=== PATIENT | male | born 1990 | race American Indian/Alaskan Native ===

== ENCOUNTER 2020-09-02 01:28 | Emergency (ER) | payer OTHER, SELFPAY ==
[2020-09-02 02:18] LABS: Bilirubin,Urine NEG (Negative); Blood,Urine NEG (Negative); Color,Urine Colorless (Yellow); Protein,Urine <15 mg/dL mg/dL (Negative); RBC,Urine < 1.0 /HPF (0.0-6.0); Urobilinogen,Urine < 2.0 mg/dL (<2.0)
[2020-09-02 02:19] LABS: Basophils % (Auto) 0.4 % (0.0-1.8); Eosinophils # (Auto) 0.5 K/mm3 (0.0-0.4); Eosinophils % (Auto) 7.6 % (0.0-4.3); Hematocrit 51.9 % (35.5-45.6); Hemoglobin 17.9 gm/dl (11.8-15.2); Lymphocytes # (Auto) 2.6 K/mm3 (1.2-5.4); Lymphocytes % (Auto) 40.4 % (13.4-35.0); Mean Corpuscular HGB Conc 35 % (32-34); Mean Corpuscular Volume 99 fl (84-94); Monocytes # (Auto) 0.3 K/mm3 (0.0-0.8); Monocytes % (Auto) 4.8 % (0.0-7.3); Platelet Count 228 K/mm3 (140-440); Red Blood Count 5.27 M/mm3 (3.65-5.03); Red Cell Distribution Width 14.8 % (13.2-15.2)
[2020-09-02 02:26] LABS: Amphetamine Screen,Urine PRESUMPTIVE NEGATIVE; Benzodiazepines Screen,Urine PRESUMPTIVE NEGATIVE; Cannabinoid Screen,Urine PRESUMPTIVE NEGATIVE; Cocaine Screen,Urine PRESUMPTIVE NEGATIVE; Methadone Screen,Urine PRESUMPTIVE NEGATIVE; Opiate Screen,Urine PRESUMPTIVE NEGATIVE
[2020-09-02 02:36] LABS: BUN/Creatinine Ratio 7; Blood Urea Nitrogen 7 mg/dL (9-20); Calcium 9.6 mg/dL (8.4-10.2); Hemolysis Index 17
--- NOTE | 2020-09-02 02:36 | Emergency Department Report ---
ED Psych HPI - General Stated Complaint: Time Seen by Provider: 09/02/20 01:46 - History of Present Illness Initial Comments: 30-year-old male, history of depression, presents to ED for mental health evaluation. Patient posted something on Facebook alluding to suicidal thoughts, stating that he does not want to be on this earth anymore. Someone saw his post and called authorities to come and evaluate the patient. Patient was brought to our ED by police. Patient does admit to suicidal thoughts. He denies a plan. He denies any alcohol or drug use. He denies any HI or hallucinations. MD Complaint: suicidal ideation -: unknown Associated Psychiatric Symptoms: depression Improves With: none Worsens With: none Context: significant life stressor Associated Symptoms: denies other symptoms Treatments Prior to Arrival: none If Self Harm: admits thoughts of - Related Data Previous Rx's Medication Instructions Recorded Last Taken Type Sertraline [Zoloft] 25 mg PO QDAY #30 tab 09/03/20 Unknown Rx traZODone [Desyrel] 50 mg PO QHS #30 tab 09/03/20 Unknown Rx Allergies Allergy/AdvReac Type Severity Reaction Status Date / Time No Known Allergies Allergy Verified 09/03/20 08:07 ED Review of Systems ROS: Stated complaint: Other details as noted in HPI Comment: All other systems reviewed and negative Psychiatric: suicidal thoughts. denies: auditory hallucinations, visual hallucinations, homicidal thoughts ED Past Medical Hx - Past Medical History Hx Psychiatric Treatment: No Additional medical history: speech impairment but understandable - Social History Smoking Status: Never Smoker Substance Use Type: None - Medications Home Medications: Home Medications Medication Instructions Recorded Confirmed Last Taken Type Sertraline [Zoloft] 25 mg PO QDAY #30 tab 09/03/20 Unknown Rx traZODone [Desyrel] 50 mg PO QHS #30 tab 09/03/20 Unknown Rx ED Physical Exam - General General appearance: alert, in no apparent distress - Head Head exam: Present: atraumatic, normocephalic - Eye Eye exam: Present: normal appearance, EOMI - ENT ENT exam: Present: mucous membranes moist - Neck Neck exam: Present: normal inspection - Respiratory Respiratory exam: Present: normal lung sounds bilaterally. Absent: respiratory distress - Cardiovascular Cardiovascular Exam: Present: regular rate, normal rhythm - GI/Abdominal GI/Abdominal exam: Absent: distended - Extremities Exam Extremities exam: Present: normal inspection - Neurological Exam Neurological exam: Present: alert, oriented X3, other (Speech impediment present) - Psychiatric Psychiatric exam: Present: suicidal ideation. Absent: homicidal ideation - Skin Skin exam: Present: warm, dry, intact, normal color ED Course Vital Signs 09/02/20 09/02/20 09/02/20 02:00 02:39 08:56 Temperature 97.6 F Pulse Rate 87 Respiratory 18 18 18 Rate Blood Pressure 100/60 [Left] O2 Sat by Pulse 97 Oximetry 09/02/20 09/03/20 09/03/20 20:56 08:06 08:10 Temperature 97.5 F L 98 F Pulse Rate 67 79 Respiratory 18 20 Rate Blood Pressure 115/68 110/60 [Left] O2 Sat by Pulse 98 98 100 Oximetry ED Medical Decision Making - Lab Data Result diagrams: 09/02/20 23:40 09/02/20 01:46 - Medical Decision Making Patient is medically clear for mental health evaluation. 1013 placed on chart. Will dispo per psych. - Differential Diagnosis Alcohol abuse, depression Critical care attestation.: If time is entered above; I have spent that time in minutes in the direct care of this critically ill patient, excluding procedure time. ED Disposition Clinical Impression: Suicidal ideation, Alcohol intoxication Disposition: DC-01 TO HOME OR SELFCARE Is pt being admited?: No Condition: Stable Additional Instructions: Per mental health provider Per psych provider, Sneha Lozada, pt has been cleared by psych. Outpatient resources provided to include psychiatric providers and therapy. Safety plan completed with pt and resources discussed. Pt denies SI, HI, and no reports of A VH. Pts thoughts are lucid and within reality. Denies having access to firearms or weapons. Professional and Agency Contacts To help [facility](19/10) [place] Crisis Line: Suicide Prevention Line: Crisis Text Line: Text START to 766810 Emergency: 911 Outpatient COMMUNITY Behavioral Health Resources: DEGERALDLB: [facility] [address] [place], [place] [address] [facility] [address] [place] [address] JUANA: [facility] - [address] [place] [address] Wednesday thru Wednesday - 8am - 5pm SHANEZuri: [facility] Address: [address], [place] [address] DEMETRIUS: [facility] Address: [address], [place] [address] Wednesday thru Wednesday- 7am-2pm [facility] Address: [address], [place] [address] Wednesday thru Wednesday: 8:30AM-5PM OUTPATIENT MENTAL HEALTH RESOURCES [facility], [address] [place] [address] [facility] Nivia Henson MD: [address] [facility] [address] [place], [place] [id number] [facility]: [address] [place], [place] [id number] [employer] [place], [place] [id number] [phone] [facility]: [address] [facility] [address] [place], [place] [id number] [facility]: [address] [facility] [address] [facility] [id number] [facility]: [address] [place] [address] Don Carballo MD: [address] [facility] [id number] [facility]: [address] [facility] [facility] [place], [place] [id number] [phone] [place] CRISIS AND ACCESS LINE: * Prescriptions: traZODone [Desyrel] 50 mg PO QHS #30 tab Sertraline [Zoloft] 25 mg PO QDAY #30 tab Referrals: PRIMARY CARE, [Primary Care Provider] - 3-5 Days Forms: Work/School Release Form(ED)
--- NOTE | 2020-09-02 12:27 | Consultation ---
History of Present Illness - Reason for Consult Consult date: 09/02/20 Reason for consult: SI - History of Present Psychiatric Illness Per ED Note: 30-year-old male, history of depression, presents to ED for mental health evaluation. Patient posted something on Facebook alluding to suicidal thoughts, stating that he does not want to be on this earth anymore. Someone saw his post and called authorities to come and evaluate the patient. Patient was brought to our ED by police. Patient does admit to suicidal thoughts. He denies a plan. He denies any alcohol or drug use. He denies any HI or hallucinations. During my evaluation of 30y/o Neil Yeager, he is lying down. He is a/ ox 3. He has a slight speech impairment. He says he put something on Facebook about not wanting to live and someone called the police. The patient says, "I don't know w hy I did that. He says somebody made me upset." He is telling me that he has to go to work and [employer] and is asking for a doctors note. He denies feeling suicidal right now. Not clear if the patient is being forthcoming about how he feels, because he verbalized to the nurse that he was having suicidal thoughts. The patient denies hallucinations of any kind. PAST PSYCHIATRIC HISTORY Diagnoses: Denies Suicide attempts or Self-harm behavior: Denies Prior psychiatric hospitalizations: Denies Substance Abuse history: Denies Previous psychiatric medications tried: "when I was younger" Outpatient treatment: Denies PAST MEDICAL HISTORY: None reported Family Psychiatric History: None reported or documented SOCIAL HISTORY Marital Status: Single Living Arrangements: with grandparents Employment Status: Employed Access to guns/weapons: None reported Education: History of Abuse: None reported Legal History: Yes REVIEW OF SYSTEMS Constitutional: Negative for weight loss ENT: Negative for stridor Respiratory: Negative for cough or hemoptysis All other systems reviewed and are negative MENTAL STATUS EXAMINATION General Appearance and Behavior: Age appropriate, good hygiene, wearing appropriate clothes, good eye contact Cooperation: Participating/engaged, but Guarded Psychomotor Behavior: Psychomotor normal Mood: "okay" Affect and affective range: Congruent with stated mood Thought Process: goal directed Thought Content: None Speech: slurred Suicidal Ideation: Denies Homicidal Ideation: Denies HI Hallucinations: Denies Delusions: None elicited Impulse Control: Impaired Insight and Judgment: Limited insight and judgment Memory: Limited Attention: Normal Orientation: Alert, oriented Assessment and Plan (1) MDD (major depressive disorder) Current Visit: Yes Status: Acute Treatment Plan Zoloft 25mg po daily Trazodone 50mg po qhs Sitter: Defer to primary Medical: Per primary Disposition: Recommend acute psychiatric inpatient Will follow. Thank you for this consult Case staffed with Dr. Ponce Medications and Allergies Allergies Allergy/AdvReac Type Severity Reaction Status Date / Time No Known Allergies Allergy Verified 09/05/14 00:20 Home Medications Medication Instructions Recorded Confirmed Last Taken Type No Known Home Medications [No 09/05/14 09/05/14 Unknown History Reported Home Medications] Mental Status Exam - Vital signs Last Vital Signs Temp 97.6 F 09/02/20 02:00 Pulse 87 09/02/20 02:00 Resp 18 09/02/20 08:56 BP 100/60 09/02/20 02:00 Pulse Ox 97 09/02/20 02:00 Results Result Diagrams: 09/02/20 01:46 09/02/20 01:46 Abnormal lab results 09/02/20 09/02/20 09/02/20 Range/Units 01:46 01:46 01:46 RBC (3.65-5.03) M/mm3 Hgb (11.8-15.2) gm/dl Hct (35.5-45.6) % MCV (84-94) fl MCH (28-32) pg MCHC (32-34) % Lymph % (Auto) (13.4-35.0) % Eos % (Auto) (0.0-4.3) % Eos # (Auto) (0.0-0.4) K/mm3 BUN 7 L (9-20) mg/dL Ur Specific [place] (1.003-1.030) Salicylates < 0.3 L (2.8-20.0) mg/dL Acetaminophen 5.0 L (10.0-30.0) ug/mL Plasma/Serum Alcohol (0-0.07) % 09/02/20 09/02/20 09/02/20 Range/Units 01:46 01:46 Unknown RBC 5.27 H (3.65-5.03) M/mm3 Hgb 17.9 H (11.8-15.2) gm/dl Hct 51.9 H (35.5-45.6) % MCV 99 H (84-94) fl MCH 34 H (28-32) pg MCHC 35 H (32-34) % Lymph % (Auto) 40.4 H (13.4-35.0) % Eos % (Auto) 7.6 H (0.0-4.3) % Eos # (Auto) 0.5 H (0.0-0.4) K/mm3 BUN (9-20) mg/dL Ur Specific [place] 1.002 L (1.003-1.030) Salicylates (2.8-20.0) mg/dL Acetaminophen (10.0-30.0) ug/mL Plasma/Serum Alcohol 0.20 H (0-0.07) % All other labs normal.
[2020-09-02] MEDS: SERTRALINE 25 MG TAB PO SCH (15:30)
[2020-09-02] MEDS ORDERED: traZODone 50 MG TAB PO SCH (22:00)
[2020-09-02 23:55] LABS: Basophils % (Auto) 0.3 % (0.0-1.8); Eosinophils # (Auto) 0.3 K/mm3 (0.0-0.4); Eosinophils % (Auto) 6.5 % (0.0-4.3); Hematocrit 53.4 % (35.5-45.6); Hemoglobin 18.1 gm/dl (11.8-15.2); Lymphocytes # (Auto) 1.6 K/mm3 (1.2-5.4); Lymphocytes % (Auto) 33.2 % (13.4-35.0); Mean Corpuscular HGB Conc 34 % (32-34); Mean Corpuscular Volume 99 fl (84-94); Monocytes # (Auto) 0.3 K/mm3 (0.0-0.8); Monocytes % (Auto) 5.8 % (0.0-7.3); Platelet Count 198 K/mm3 (140-440); Red Blood Count 5.37 M/mm3 (3.65-5.03); Red Cell Distribution Width 14.7 % (13.2-15.2)
[2020-09-03 08:10] VITALS: BP 110/60
[2020-09-03] MEDS: SERTRALINE 25 MG TAB PO SCH (09:35)
--- NOTE | 2020-09-03 10:34 | Progress Note ---
Subjective - Reason for Consult Consult date: 09/03/20 Reason for consult: SI - Chief Complaint Chief complaint: Per nurse and sitter caring for patient today: The nurse and sitter both state the patient has been calm and cooperative and has not shown or expressed any signs of self harm of SI. The patient was seen today. He is calm and cooperative. He says he has to go see his lead security officer and is asking about going home. The patient denies SI/HI. He says "I was upset and wont do that again." He denies hallucinations of any kind. REVIEW OF SYSTEMS Constitutional: Negative for weight loss ENT: Negative for stridor Respiratory: Negative for cough or hemoptysis All other systems reviewed and are negative MENTAL STATUS EXAMINATION General Appearance and Behavior: Age appropriate, good hygiene, wearing appropriate clothes, good eye contact Cooperation: Participating/engaged, but Guarded Psychomotor Behavior: Psychomotor normal Mood: "good" Affect and affective range: Congruent with stated mood Thought Process: goal directed Thought Content: None Speech: slurred Suicidal Ideation: Denies Homicidal Ideation: Denies Hallucinations: Denies Delusions: None elicited Impulse Control: Impaired Insight and Judgment: Limited insight and judgment Memory: Limited Attention: Normal Orientation: Alert, oriented Assessment and Plan (1) MDD (major depressive disorder) Current Visit: Yes Status: Acute Treatment Plan d/c 1013 Zoloft 25mg po daily Trazodone 50mg po qhs Sitter: Defer to primary Medical: Per primary Disposition: Do not recommend acute psychiatric inpatient. The patient understands that if suicidal thoughts are to return he is to seek immediate assistance including but not limited to 911/ER or crisis hotline. The raw stock machine feeder to further discuss the safety plan, and give outpatient resources The patient to follow up with outpatient psychiatry in 7 to 14 days upon d ischarge Will sign off. Thank you for this consult Case staffed with Dr. Ponce Mental Status Exam - Vital signs Last Vital Signs Temp 98 F 09/03/20 08:10 Pulse 79 09/03/20 08:10 Resp 20 09/03/20 08:10 BP 110/60 09/03/20 08:10 Pulse Ox 100 09/03/20 08:10
--- NOTE | 2020-09-03 11:11 | Event Note ---
Date: 09/03/20 Since vital signs are stable. Creatinine 1.3. WBC is 24. Plan to continue antibiotics as an outpatient. I am told by staff discharge is pending. They are to inform me when patient is ready.
== END 2020-09-03 14:46 | disposition home or self-care (01) ==
LOC: ED 01:28 → EEVIPCON 01:28 → ED 09-03 14:46
DX: R45.851 Suicidal ideations (principal); Z20.822 Contact with and (suspected) exposure to COVID-19; F10.129 Alcohol abuse with intoxication, unspecified; Z79.899 Other long term (current) drug therapy; Y90.9 Presence of alcohol in blood, level not specified
CPT/HCPCS: 36415; 80048; 80307; 81001; 85025; 99284; U0003; 80320; G0480